=== PATIENT | female | born 1950 | race African-American/Black ===

== ENCOUNTER 2019-12-26 22:58 | Inpatient (IN) | payer BC, MEDICARE ==
[~2019-12-26] VITALS: Ht 175.3 cm; Wt 90.3 kg
[~2019-12-26 22:58] MED LIST: ATEN50TA; benzapril
[2019-12-27] MEDS ORDERED: ACETAMINOPHEN 500MG TABLET PO ONE
[2019-12-27] MEDS ORDERED: ONDANSETRON HCL 4MG/2ML INJ IV ONE (00:45)
[2019-12-27 05:03] LABS: CHLORIDE 97 mEq/L (98-107); CREATINE KINASE 998 IU/L (26-192)
[2019-12-27 05:39] LABS: D-DIMER 1.33 mg/L FEU (<0.50); PROTHROMBIN TIME 10.9 sec (9.6-11.0)
[2019-12-27 06:01] LABS: HEMATOCRIT. 40.4 % (36.0-48.0); HEMOGLOBIN. 13.6 g/dL (12.0-16.0); RED BLOOD CELL COUNT 4.84 mill/uL (4.2-5.4)
[2019-12-27 06:02] LABS: LYMPHOCYTES % 15.7 % (20.0-50.0); MEAN CORPUSCULAR HEMOGLOBIN 28.1 pg (28.0-32.0); MEAN CORPUSCULAR VOLUME 83.4 fL (81.0-99.0); MEAN PLATELET VOLUME 8.1 fl (7.4-10.4); MONOCYTES % 10.1 % (2.0-8.0); NEUTROPHILS % 73.4 % (40.0-76.0); PLATELET 237 x1000/uL (130-400); RED CELL DISTRIBUTION WIDTH 14.3 % (11.6-14.6)
[2019-12-27 06:02] LABS: CLARITY URINE CLOUDY (CLEAR); COLOR URINE DARK YELLOW (YELLOW); KETONES URINE 2+ (NEGATIVE); LEUKOCYTE ESTERASE URINE TRACE (NEGATIVE); NITRITE URINE NEGATIVE (NEGATIVE); OCCULT BLOOD URINE 2+ (NEGATIVE); PH URINE 5.5 (4.5-8.0); PROTEIN URINE 2+ (NEGATIVE); SPECIFIC GRAVITY URINE 1.018 (1.005-1.030)
[2019-12-27 06:03] LABS: BASOPHILS % 0.8 % (0.0-2.0)
[2019-12-27] MEDS ORDERED: ACETAMINOPHEN 325MG TABLET PO PRN (06:15)
[2019-12-27] MEDS ORDERED: HYDROMORPHONE HCL/PF 2MG/ML CPJ IV PRN (06:15)
[2019-12-27] MEDS ORDERED: MAGNESIUM/ALUMINUM HYDROXIDE/SIMETHICONE 30ML UDC PO PRN (06:15)
[2019-12-27] MEDS ORDERED: DOCUSATE SODIUM 100MG CAPSULE PO PRN (06:15)
[2019-12-27] MEDS ORDERED: ONDANSETRON HCL 4MG/2ML INJ IV PRN (06:15)
[2019-12-27 06:31] LABS: *AMPHETAMINES SCREEN URINE NEGATIVE (NEGATIVE); *BARBITURATES SCREEN URINE NEGATIVE (NEGATIVE); *BENZODIAZEPINES SCREEN URINE NEGATIVE (NEGATIVE); *COCAINE SCREEN URINE NEGATIVE (NEGATIVE); CANNABINOID URINE SCREEN NEGATIVE (NEGATIVE); OPIATES URINE SCREEN NEGATIVE (NEGATIVE); PHENCYCLIDINE URINE SCREEN NEGATIVE (NEGATIVE)
[2019-12-27 06:32] LABS: METHADONE URINE SCREEN NEGATIVE (NEGATIVE)
[2019-12-27] MEDS ORDERED: LEVOFLOXACIN 500MG PREMIX 100 ML IV SCH (07:00)
[2019-12-27] MEDS: DEXT 5%/0.45% NACL 1000ML 1,000 ML IV SCH ×2 (07:04→21:27)
[2019-12-27] MEDS ORDERED: LEVOFLOXACIN 500MG PREMIX 100 ML IV ONE (08:43)
[2019-12-27] MEDS ORDERED: ENOXAPARIN 40MG/0.4ML SYR SUBCUT ONE (08:44)
[2019-12-27] MEDS ORDERED: ENOXAPARIN 40MG/0.4ML SYR SUBCUT SCH (09:00)
[2019-12-27 15:19] VITALS: BP 136/98
[2019-12-27] MEDS ORDERED: LISI10TA5 MT (15:30)
[2019-12-27] MEDS ORDERED: AMLO10TA80 MT (15:32)
[2019-12-27] MEDS ORDERED: ONDA8TAB59 MT (15:32)
[2019-12-27] MEDS ORDERED: HYDR25TA MT (15:32)
[2019-12-27] MEDS ORDERED: METF-414 MT (16:35)
[2019-12-27] MEDS ORDERED: CLONIDINE 0.1MG TABLET PO PRN (16:45)
[2019-12-27] MEDS ORDERED: DEXTROSE 50% WATER 50ML SYRINGE IV PRN (17:00)
[2019-12-27] MEDS: BLOOD SUGAR DIAGNOSTIC STRIP TEST SCH ×2 (17:52→21:24)
[2019-12-27] MEDS: INSULIN LISPRO 100 UNITS/ML SUBCUT SCH ×2 (17:52→21:00)
[2019-12-27] MEDS: GUAIFENESIN 200MG/10ML SUGAR FREE UDC PO PRN (17:53)
[2019-12-27 20:00] VITALS: BP 145/86
[2019-12-28] VITALS: BP 138/62
[2019-12-28] MEDS: GUAIFENESIN 200MG/10ML SUGAR FREE UDC PO PRN (00:09)
[2019-12-28 04:00] VITALS: BP 135/75
[2019-12-28 07:56] LABS: BASOPHILS % 0.1 % (0.0-2.0); EOSINOPHILS % 0.1 % (0.0-5.0); HEMATOCRIT. 38.3 % (36.0-48.0); HEMOGLOBIN. 12.9 g/dL (12.0-16.0); LYMPHOCYTES % 20.3 % (20.0-50.0); MEAN CORPUSCULAR HEMOGLOBIN 28.3 pg (28.0-32.0); MEAN CORPUSCULAR VOLUME 83.8 fL (81.0-99.0); MEAN PLATELET VOLUME 7.7 fl (7.4-10.4); NEUTROPHILS % 67.5 % (40.0-76.0); PLATELET 263 x1000/uL (130-400); RED BLOOD CELL COUNT 4.57 mill/uL (4.2-5.4); RED CELL DISTRIBUTION WIDTH 14.1 % (11.6-14.6)
[2019-12-28 08:00] VITALS: BP 149/88
[2019-12-28 08:00] LABS: CHLORIDE 100 mEq/L (98-107)
[2019-12-28] MEDS: INSULIN LISPRO 100 UNITS/ML SUBCUT SCH ×4 (08:10→21:00)
[2019-12-28] MEDS: LEVOFLOXACIN 500MG PREMIX 100 ML IV SCH (08:12)
[2019-12-28] MEDS: AMLODIPINE 10MG TABLET PO SCH (08:13)
[2019-12-28] MEDS: LISINOPRIL 10MG TABLET PO SCH (08:13)
[2019-12-28] MEDS: BLOOD SUGAR DIAGNOSTIC STRIP TEST SCH ×4 (08:13→20:59)
[2019-12-28] MEDS: DEXT 5%/0.45% NACL 1000ML 1,000 ML IV SCH (08:14)
[2019-12-28] MEDS ORDERED: HYDROCHLOROTHIAZIDE 25MG TABLET PO SCH (09:00)
[2019-12-28] MEDS ORDERED: HYDROCHLOROTHIAZIDE 12.5MG CAPSULE PO SCH (09:00)
[2019-12-28] MEDS ORDERED: ENOXAPARIN 40MG/0.4ML SYR SUBCUT SCH (09:00)
[2019-12-28] MEDS: ENOXAPARIN 100MG/ML SYR SUBCUT SCH ×2 (10:38→20:44)
[2019-12-28] MEDS ORDERED: POTASSIUM CHLORIDE 20MEQ TABLET SR PO NR (11:00)
[2019-12-28 11:06] LABS: BG CARBOXYHEMOGLOBIN 0.4 % (0.5-1.5); BG FRACTION INSPIRED OXYGEN 21; BG HCO3 ACT 28.6 mmol/L (22.0-26.0); BG METHEMOGLOBIN 0.2 % (0.0-1.5); BG OXYGEN SATURATION 90.9 % (92.0-98.5); BG OXYHEMOGLOBIN 90.4 % (94.0-97.0); BG PCO2 38.9 mmHg (35.0-45.0); BG PH 7.485 (7.350-7.450); BG PO2 59.1 mmHg (75.0-100.0); BG SAMPLE SITE RIGHT BRACHIAL; BG TOTAL HEMOGLOBIN 13.7 g/dL (12.0-18.0); BG VENT MODE ROOM AIR
[2019-12-28 12:00] VITALS: BP 133/82
[2019-12-28] MEDS ORDERED: HYDROCODONE/ACETAMINOPHEN 5/325MG TABLET PO PRN (14:30)
[2019-12-28 16:00] VITALS: BP 138/81
[2019-12-28] MEDS ORDERED: ALBUTEROL 6.7GM HFA INHALER ORI PRN (16:00)
[2019-12-28 20:00] VITALS: BP 124/80
[2019-12-29] VITALS: BP 102/70
[2019-12-29 04:00] VITALS: BP 143/82
[2019-12-29] MEDS: LEVOFLOXACIN 500MG PREMIX 100 ML IV SCH (06:01)
[2019-12-29] MEDS: BLOOD SUGAR DIAGNOSTIC STRIP TEST SCH ×3 (06:52→17:14)
[2019-12-29 08:00] VITALS: BP 130/77
[2019-12-29] MEDS: INSULIN LISPRO 100 UNITS/ML SUBCUT SCH ×3 (08:10→17:14)
[2019-12-29 08:13] LABS: BASOPHILS % 0.5 % (0.0-2.0); EOSINOPHILS % 0.5 % (0.0-5.0); HEMATOCRIT. 38.8 % (36.0-48.0); HEMOGLOBIN. 13.2 g/dL (12.0-16.0); LYMPHOCYTES % 22.9 % (20.0-50.0); MEAN CORPUSCULAR HEMOGLOBIN 28.1 pg (28.0-32.0); MEAN CORPUSCULAR VOLUME 82.8 fL (81.0-99.0); MEAN PLATELET VOLUME 7.6 fl (7.4-10.4); MONOCYTES % 12.5 % (2.0-8.0); NEUTROPHILS % 63.6 % (40.0-76.0); PLATELET 300 x1000/uL (130-400); RED BLOOD CELL COUNT 4.69 mill/uL (4.2-5.4); RED CELL DISTRIBUTION WIDTH 14.1 % (11.6-14.6)
[2019-12-29 08:27] LABS: CHLORIDE 102 mEq/L (98-107)
[2019-12-29 09:09] LABS: BG BASE EXCESS 5.3 mmol/L (-2.0-2.0); BG CARBOXYHEMOGLOBIN 0.9 % (0.5-1.5); BG DEOXYHEMOGLOBIN 4.4 % (0.0-5.0); BG FRACTION INSPIRED OXYGEN 21; BG METHEMOGLOBIN 0.2 % (0.0-1.5); BG OXYGEN SATURATION 95.6 % (92.0-98.5); BG OXYHEMOGLOBIN 94.5 % (94.0-97.0); BG PCO2 34.8 mmHg (35.0-45.0); BG PH 7.523 (7.350-7.450); BG SAMPLE SITE RIGHT RADIAL; BG TOTAL HEMOGLOBIN 14.8 g/dL (12.0-18.0); BG VENT MODE ROOM AIR
[2019-12-29] MEDS: AMLODIPINE 10MG TABLET PO SCH (09:24)
[2019-12-29] MEDS: LISINOPRIL 10MG TABLET PO SCH (09:24)
[2019-12-29] MEDS: ENOXAPARIN 100MG/ML SYR SUBCUT SCH (10:17)
[2019-12-29] MEDS ORDERED: POTASSIUM CHLORIDE 20MEQ TABLET SR PO SCH (11:30)
[2019-12-29 12:00] VITALS: BP 134/78
[2019-12-29] MEDS ORDERED: ALBU90AE INH (12:46)
[2019-12-29] MEDS ORDERED: FAMO-135 PO (12:46)
[2019-12-29] MEDS ORDERED: APIX5TAB MT ×2 (12:46→13:46)
[2019-12-29] MEDS ORDERED: LEVO500T2 MT (12:46)
[2019-12-29] MEDS ORDERED: LANC1COM2 MC (14:32)
[2019-12-29] MEDS ORDERED: AMLO10TA4 MT (14:32)
[2019-12-29] MEDS ORDERED: BLOO-1613 MC (14:32)
[2019-12-29] MEDS ORDERED: BLOO1KIT74 TP (14:32)
[2019-12-29 15:24] VITALS: BP 131/69
== END 2019-12-29 20:00 | disposition home or self-care (01) | DRG 871 ==
LOC: ER 22:58 → 7WST 12-27 01:49 → EDBEDREQ 12-27 01:53 → EDBEDREQTM 12-27 01:53 → EDBEDREQDT 12-27 01:53 → EDBEDREQSVC 12-27 01:53 → ENRESERV 12-27 14:04
PROVIDERS: ADMIT Internal Medicine; ATTEND Internal Medicine
DX: A41.89 Other specified sepsis (principal); U07.1 COVID-19; J12.89 Other viral pneumonia; E87.1 Hypo-osmolality and hyponatremia; N39.0 Urinary tract infection, site not specified; E66.9 Obesity, unspecified; I10 Essential (primary) hypertension; N20.0 Calculus of kidney; K57.90 Diverticulosis of intestine, part unspecified, without perforation or abscess without bleeding; R74.0 Nonspecific elevation of levels of transaminase and lactic acid dehydrogenase [LDH]; E87.6 Hypokalemia; K76.0 Fatty (change of) liver, not elsewhere classified; E11.9 Type 2 diabetes mellitus without complications; D72.810 Lymphocytopenia; E80.6 Other disorders of bilirubin metabolism; T50.2X5A Adverse effect of carbonic-anhydrase inhibitors, benzothiadiazides and other diuretics, initial encounter; R09.02 Hypoxemia; Z87.440 Personal history of urinary (tract) infections; Z90.710 Acquired absence of both cervix and uterus; Z79.899 Other long term (current) drug therapy; Z68.29 Body mass index [BMI] 29.0-29.9, adult; Y92.89 Other specified places as the place of occurrence of the external cause; R06.03 Acute respiratory distress
CPT/HCPCS: 36415; 36600; 71045; 71250; 74176; 80053; 80305; 81003; 82375; 82550; 82728; 82805; 82962; 83036; 83605; 83615; 84145; 84484; 85025; 85379; 85384; 93005; 93970; 99285; J1170; J1650; J1956; J2405; U0003-CS